=== PATIENT | female | born 1985 | race Caucasian/White ===

== ENCOUNTER 2017-11-13 18:19 | Emergency (ER) | payer OTHER ==
[~2017-11-13] VITALS: Ht 160 cm; Wt 76.7 kg
[~2017-11-13 18:19] MED LIST: FIORICET 50-301 EACH PO; FLEXERIL10 MG PO; MOTRIN800 MG PO; NORCO 5/3251 TABLET PO
[2017-11-13 18:51] LABS: APPEARANCE CLOUDY ((CLEAR)); BILIRUBIN NEGATIVE; BLOOD LARGE; COLOR AMBER ((YELLOW)); GLUCOSE (STRIP) NEGATIVE; KETONES NEGATIVE; LEUKOCYTES MODERATE; NITRITE NEGATIVE; PROTEIN (STRIP) >=500; UROBILINOGEN 0.2 MG/DL (0.2-1.0)
[2017-11-13 18:57] LABS: HEMATOCRIT 36.6 % (36.0-46.0); HEMOGLOBIN 12.7 G/DL (11.9-15.5); MCH 30.4 PG (29.0-34.0); MCHC 34.7 G/DL (30.0-36.0); MCV 87.6 FL (83-99); PLATELET COUNT 226 K/uL (156-360); RBC DIS.WIDTH-CV 12.6 % (11.8-14.6); RBC DIS.WIDTH-SD 40.4 % (39-53); RED BLOOD COUNT 4.18 M/uL (3.80-5.20); WHITE BLOOD COUNT 13.6 K/uL (4.1-10.2)
[2017-11-13 19:04] LABS: OTHER SC; RED BLOOD CELLS TNTC /HPF (0-5); UCUL ADDED? YES
[2017-11-13 19:08] LABS: ALBUMIN 4.5 g/dL (3.2-4.8)
[2017-11-13 19:09] LABS: CHLORIDE 104 mEq/L (99-109); SODIUM 137 mEq/L (136-147)
[2017-11-13 19:11] LABS: GLUCOSE 88 mg/dL (70-99); TOTAL PROTEIN 7.5 g/dL (6.4-8.3)
[2017-11-13 19:13] LABS: TOTAL BILIRUBIN 0.2 mg/dL (0.0-1.0)
[2017-11-13 19:14] LABS: ALKALINE PHOSPHATASE 45 IU/L (3-129)
[2017-11-13 19:15] LABS: CREATININE 0.8 mg/dL (0.6-1.3); GFR ESTIMATE (CALCULATED) > 59 mL/min/
[2017-11-13 19:16] LABS: AST (GOT) 18 IU/L (2-34); UREA NITROGEN (BUN) 12 mg/dL (9-23)
[2017-11-13 19:18] LABS: ALT (GPT) 18 IU/L (3-49)
[2017-11-13 19:24] LABS: QUANTITATIVE HCG < 4.0 MIU/ML
[2017-11-13] MEDS ORDERED: LEVAQUIN750 MG PO (20:23)
[2017-11-13] MEDS ORDERED: PYRIDIUM200 MG PO (20:24)
[2017-11-13 20:35] VITALS: BP 110/78
== END 2017-11-13 20:36 | disposition home or self-care (01) ==
LOC: EME 18:19
PROVIDERS: Physician Assistant Medical
DX: N39.0 Urinary tract infection, site not specified (principal); Z87.440 Personal history of urinary (tract) infections; F17.200 Nicotine dependence, unspecified, uncomplicated; Z88.1 Allergy status to other antibiotic agents
CPT/HCPCS: 74176; 80053; 81003; 84702; 85027; 87077; 87086; 87186; 99281; 99284